=== PATIENT | female | born 1990 | race Caucasian/White ===

== ENCOUNTER → 2021-05-23 | Outpatient (CLI) | payer OTHER ==
[~2021-05-23] MED LIST: AMOXICILLIN500 MG PO; HYDROXYZINE HCL25 MG PO; LABETALOL HCL200 MG PO; MACROBID 100 M100 MG PO; MEDROL DOSEPAK 24 MG PO; PROTONIX 40 MG40 M1 PO; PROVENTIL HFA6.7 GM INH; PROZAC10 MG PO; ULTRAM50 MG PO
== END ==
LOC: EXRD 13:30
DX: R05.9 Cough, unspecified (principal)
CPT/HCPCS: 71046